=== PATIENT | male | born 1975 | race Caucasian/White ===

== ENCOUNTER 2017-07-07 08:02 | Emergency (ER) | payer OTHER ==
[~2017-07-07] VITALS: Ht 180.3 cm; Wt 86.2 kg
[2017-07-07] MEDS ORDERED: ONDANSETRON HCL 4 MG ORAL DISINTEGRATING TAB SL STA (08:12)
[2017-07-07] MEDS ORDERED: MORPHINE SULFATE 2 MG/ML SYR IV STA ×2 (08:12→10:42)
[2017-07-07] MEDS ORDERED: SODIUM CHLORIDE 0.9% 1000ML 1,000 ML IV STA (08:12)
[2017-07-07] MEDS ORDERED: DIATRIZOATE MEGL/DIATRIZOA SOD 30 ML BTL PO ONE (08:25)
[2017-07-07 08:32] LABS: BASOPHILS # (AUTO) 0.1 (0.0-0.1); BASOPHILS % 0.6 % (0.0-1.0); EOSINOPHILS # (AUTO) 0.3 (0.0-0.4); EOSINOPHILS % 2.3 % (0.0-6.0); HEMATOCRIT 56.6 % (38.2-49.6); HEMOGLOBIN 20.4 g/dL (14.0-18.0); LYMPHOCYTES # (AUTO) 1.7 (1.0-3.2); MEAN CORPUSCULAR HEMOGLOBIN 34.7 pg (28-32); MEAN CORPUSCULAR VOLUME 96.3 fL (81-99); MONOCYTES % 8.6 % (4.4-11.3); NEUTROPHILS # (AUTO) 8.2 (2.1-6.9); NEUTROPHILS % 73.1 % (38.7-80.0); PLATELET COUNT 263 x10e3/uL (140-360); RED BLOOD COUNT 5.88 x10e6/uL (4.3-5.7); RED CELL DISTRIBUTION WIDTH 14.2 % (11.7-14.4)
[2017-07-07] MEDS ORDERED: ALPRAZOLAM0.5 MG PO (08:34)
[2017-07-07 08:46] LABS: ALANINE AMINOTRANSFERASE 27 IU/L (0-55); ALBUMIN 3.9 g/dL (3.5-5.0); ALBUMIN/GLOBULIN RATIO 1.2 (0.8-2.0); ALKALINE PHOSPHATASE 89 IU/L (40-150); AMYLASE 62 U/L (25-125); ANION GAP 11.2 mmol/L (8-16); BLOOD UREA NITROGEN 6 mg/dL (7-26); BUN/CREATININE RATIO 5 (6-25); CALCIUM 9.7 mg/dL (8.4-10.2); CARBON DIOXIDE 28 mmol/L (22-29); CHLORIDE 102 mmol/L (98-107); EST GLOMERULAR FILTRATION RATE > 60 ML/MIN (60-); GLUCOSE 104 mg/dL (74-118); LIPASE 36 U/L (8-78); POTASSIUM 4.2 mmol/L (3.5-5.1); SODIUM 137 mmol/L (136-145)
[2017-07-07 10:06] LABS: CLARITY,URINE CLEAR (CLEAR); COLOR,URINE YELLOW (YELLOW)
[2017-07-07 10:08] LABS: LEUKOCYTE ESTERASE ,URINE NEGATIVE (NEGATIVE); NITRITE,URINE NEGATIVE (NEGATIVE)
[2017-07-07 10:09] LABS: BILIRUBIN,URINE NEGATIVE (NEGATIVE); KETONES,URINE NEGATIVE (NEGATIVE); PROTEIN,URINE DIPSTICK NEGATIVE (NEGATIVE); URINE UROBILINOGEN 0.2 mg/dL (0.2 - 1)
[2017-07-07 10:18] LABS: EPITHELIAL CELLS,URINE RARE /LPF
--- NOTE | 2017-07-07 10:36 | Diagnostic Imaging Report ---
PROCEDURE:CT ABDOMEN AND PELVIS WITH CONTRAST COMPARISON:None. INDICATIONS:Umbilical pain; nausea, vomiting and diarrhea TECHNIQUE: Routine protocol Volumetric CT abdomen and pelvis after administration of 100 mL Isovue 370 intravenous contrast and 900 mL positive enteric contrast. Multiplanar reformatted images. DLP: 749.61 FINDINGS: Clear lung bases. No pleural effusions. Normal heart size. Liver: Focal fatty infiltration in segment 4. Otherwise, normal midclavicular craniocaudal span 15.8 cm. Gallbladder: Normal Pancreas: Normal Spleen: Normal Adrenal glands: Normal Kidneys: Normal Urinary bladder: Normal Bowel: Diffuse circumferential thickening of the ileum, extending to the terminal ileum and ileocecal valve. Mild thickening of the cecum. Normal transverse and sigmoid colon. Normal appendix. Peritoneum: Small volume simple free fluid. Vasculature: Normal caliber. Normal SMA, SMV, BRIANA and IMV. Patent, normal caliber portal vein. Lymph nodes: Normal Skeleton: Intact. Normal sacroiliac joints. Soft tissues: Normal CONCLUSION: Ileitis extending to the terminal ileum and ileocecal valve. Differential considerations primarily infectious and inflammatory etiologies. No obstruction. Dictated by: Harley Garsia M.D. on 07/07/2017 at 10:38 Electronically approved by: Harley Garsia M.D. on 07/07/2017 at 10:38
[2017-07-07 11:06] VITALS: BP 134/94
[2017-07-07] MEDS ORDERED: SODIUM CHLORIDE 0.9% 50ML 50 ML ONE (14:13)
[2017-07-07] MEDS ORDERED: IOPAMIDOL 370 MG/ML 200 ML INFUS..BTL INJ ONE (14:13)
== END 2017-07-07 11:53 | disposition home or self-care (01) ==
LOC: ER 08:02
DX: R10.33 Periumbilical pain (principal); R11.2 Nausea with vomiting, unspecified; D72.829 Elevated white blood cell count, unspecified; D75.1 Secondary polycythemia; I10 Essential (primary) hypertension; F41.9 Anxiety disorder, unspecified; F17.210 Nicotine dependence, cigarettes, uncomplicated; Z88.0 Allergy status to penicillin
CPT/HCPCS: 36415; 74177; 80053; 81001; 82150; 83690; 83735; 85025; 99284; J2270; J7030; Q9967